=== PATIENT | male | born 1960 | race Caucasian/White ===

== ENCOUNTER → 2017-11-24 | Day surgery (SDC) | payer BC ==
[2017-11-17 15:06] VITALS: BMI 34.9
[~2017-11-24] MED LIST: DEXAMETHASONE SOD PHOS (MDV) 100 MG/10 ML VIAL ONE; FAMOTIDINE 20 MG/2 ML VIAL IV ONE; HYDROmorphone 1 MG/ML 1 ML SYRINGE IVP PRN; LACTATED RINGERS 1,000 ML IV SCH; LIDOCAINE 1% 20 ML VIAL (10MG/ML) FOR IV START INTRADERMA ONE; LIDOCAINE 1% INJ 10MG/ML (20 ML MDV) ONE; MIDAZOLAM 2 MG/2 ML VIAL ONE; ONDANSETRON 4 MG/2 ML VIAL IVP PRN; ONDANSETRON 4 MG/2 ML VIAL ONE; OXYMETAZOLINE 0.05% NASL SPRAY 1 SPRAY BOTTLE NASAL ONE; PROPOFOL 10 MG/ML 20 ML VIAL IV ONE; SUCCINYLCHOLINE CHLORIDE 100 MG/5 ML SYR IV ONE; ceFAZolin 1,000 MG in DEXTROSE/WATER 1 50ML.BAG IV ONE; fentaNYL (PF) 50 MCG/ML 2 ML AMP ONE
[2017-11-24 10:11] VITALS: RESP 16
[2017-11-24 10:27] LABS: Glucose,Whole Blood 87 mg/dL (75-99)
--- NOTE | 2017-11-24 11:48 | P.OP ---
Date of Procedure: 11/24/17 Preoperative Diagnosis: Left chronic otitis media Right tympanic membrane perforation Bilateral eustachian tube dysfunction Postoperative Diagnosis: Same Procedure(s) Performed: Left ventilation tube placement-triune tube, right ear microscopic exam under anesthesia, bilateral balloon eustachian tuboplasty Anesthesia: ART Surgeon: Benny Morton Estimated Blood Loss (ml): 2 Pathology: none sent Condition: stable Disposition: PACU Indications for Procedure: This 56-year-old white male with a long history of chronic otitis media and eustachian tube dysfunction. He's had. Recently with a recurrent left middle ear effusion and the right tympanic membranes perforation. Operative Findings: Mucoid middle ear effusion on the left, central right tympanic membrane perforation approximate 20% Description of Procedure: The patient was brought in the operative suite and placed in a supine position. The patient underwent induction of general anesthesia with oral endotracheal intubation without difficulty. The patient was prepped and draped in usual aseptic fashion. The Zeiss microscope was positioned over the right ear and examined under microscopy with a right intact membranes perforation noted. The left at this point to leave this as is as he's had numerous ventilation tubes and this was repaired he would likely need another ventilation tube and this is not significantly affecting his hearing at this point and he does fly frequently including some plans to fly within a week and a half and a fresh tympanoplasty would not be particularly ideal with flying in the near future. Attention was then turned to the left and the ear microscopy again was performed. An anteroinferior myringotomy was placed in radial fashion and the middle ear effusion was aspirated. A triune ventilation tube was placed without difficulty. Ciloxan drops were placed as well as sterile cotton ball Topical Afrin on cottonoids were placed in the nasal cavities and left in place for 3 minutes. These were then removed. Full 0 endoscopic evaluation performed bilaterally. The [employer] balloon light guided system was then utilized to perform eustachian tuboplasty utilizing the bending Tool at the shortest length for the eustachian tuboplasty. This was utilized bilaterally under 0 endoscopic examination and visualization. Very minimal bleeding was noted which stopped spontaneously. The balloon and endoscope were then removed. The patient was then allowed to emerge from general anesthesia having tolerated procedure well was extubated and transferred to the postoperative recovery area in satisfactory condition.
[2017-11-24 12:06] VITALS: TEMP 98.7
[2017-11-24 12:57] VITALS: BP 134/76; PULSE 58
== END | disposition home or self-care (01) ==
LOC: OR 09:26
PROVIDERS: ATTEND Otolaryngology
DX: H65.492 Other chronic nonsuppurative otitis media, left ear (principal); H72.91 Unspecified perforation of tympanic membrane, right ear; H69.93 Unspecified Eustachian tube disorder, bilateral; I12.9 Hypertensive chronic kidney disease with stage 1 through stage 4 chronic kidney disease, or unspecified chronic kidney disease; N18.9 Chronic kidney disease, unspecified; Z79.82 Long term (current) use of aspirin; Z79.899 Other long term (current) drug therapy; Z79.891 Long term (current) use of opiate analgesic
CPT/HCPCS: 69436; 69949; C1726; J2250; J2405; J2001; J3010; J0690; J1100; J0330; J2704

== ENCOUNTER 2021-03-27 12:09 | Emergency (ER) | payer BC ==
[2021-03-27 12:18] VITALS: BP 149/78; PULSE 65; RESP 16; TEMP 98
--- NOTE | 2021-03-27 13:06 | ED ---
Recheck HPI - General Chief Complaint: Recheck/Abnormal Lab/Rx Stated Complaint: arm pain Time Seen by Provider: 03/27/21 12:32 Source: patient, RN notes reviewed Mode of arrival: ambulatory Limitations: no limitations - History of Present Illness Initial Comments: 60-year-old presents emergency Department chief complaint right arm pain, swelling. Patient states that he was discharged 2 weeks ago from [facility]. Patient states that he was admitted for COVID-19. Patient states he had an IV in his right arm noticed that his been increasing redness, increased warmth and swelling. Patient states that is concerned about possible blood clot no chest pain or shortness of breath. Patient has no history of PE or DVT. - Related Data Home Medications Medication Instructions Recorded Confirmed Furosemide [Lasix] 20 mg PO BID 11/17/17 11/24/17 K-Phos 500mg 1,500 mg PO TID 11/17/17 Loratadine [Claritin] 10 mg PO DAILY 11/17/17 11/24/17 Magnesium Chloride [Mag64] 64 mg PO DAILY 11/17/17 11/24/17 Metoprolol Tartrate [Lopressor] 50 mg PO BID 11/17/17 11/24/17 NIFEdipine [NIFEdipine ER] 30 mg PO DAILY 11/17/17 11/24/17 NIFEdipine [NIFEdipine ER] 60 mg PO HS 11/17/17 11/24/17 Tacrolimus [Prograf] 3 mg PO Q12H 11/17/17 11/17/17 hydrALAZINE HCL [Apresoline] 100 mg PO TID 11/17/17 11/17/17 mycophenolate mofetiL [Cellcept] 1,000 mg PO BID 11/17/17 11/17/17 predniSONE 5 mg PO DAILY 11/17/17 11/24/17 Allergies Allergy/AdvReac Type Severity Reaction Status Date / Time No Known Allergies Allergy Verified 03/27/21 12:16 Review of Systems ROS Statement: Those systems with pertinent positive or pertinent negative responses have been documented in the HPI. ROS Other: All systems not noted in ROS Statement are negative. 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 SEASONAL ALLERGIES History of Any Multi-Drug Resistant Organisms: None Reported Past Surgical History: Orthopedic Surgery, Tonsillectomy Additional Past Surgical History / Comment(s): RT KIDNEY TRANSPLANT. BILAT WRIST SX. TRIUNE TUBE PLACEMENT BILAT EARS. BILAT BMT. COLONOSCOPY Past Anesthesia/Blood Transfusion Reactions: No Reported Reaction Past Psychological History: No Psychological Hx Reported Smoking Status: Never smoker Past Alcohol Use History: None Reported Past Drug Use History: None Reported - Past Family History Daughter(s) Family Medical History: Cancer Father Family Medical History: Cancer Sister(s) Family Medical History: Cancer Brother(s) Family Medical History: Cancer Additional Family Medical History / Comment(s): 1 BROTHER -JAW CANCER- 1 BROTHER PROSTATE CANCER General Exam Limitations: no limitations General appearance: alert, in no apparent distress Head exam: Present: atraumatic, normocephalic, normal inspection Eye exam: Present: normal appearance, PERRL, EOMI. Absent: scleral icterus, conjunctival injection, periorbital swelling Respiratory exam: Present: normal lung sounds bilaterally. Absent: respiratory distress, wheezes, rales, rhonchi, stridor Cardiovascular Exam: Present: regular rate, normal rhythm, normal heart sounds. Absent: systolic murmur, diastolic murmur, rubs, gallop, clicks Extremities exam: Present: other (Right arm there is an area of redness just past antecubital fossa, there is some tenderness and palpable lump extend up to the bicep) Skin exam: Present: warm, dry, intact, normal color. Absent: rash Course Vital Signs 03/27/21 12:16 Temperature 98 F Pulse Rate 65 Respiratory 16 Rate Blood Pressure 149/78 O2 Sat by Pulse 93 L Oximetry Medical Decision Making - Medical Decision Making Ultrasound was reviewed there is no evidence of acute DVT. Patient has evidence of superficial thrombophlebitis which is not within 2 cm of a deep vessel. I d id confirm this with ultrasound. Patient will have repeat ultrasound seventh and eighth with vascular. Patient will apply warm compresses. Disposition Clinical Impression: Superficial thrombophlebitis of arm Disposition: HOME SELF-CARE Condition: Stable Instructions (If sedation given, give patient instructions): Superficial Thrombophlebitis (ED) Additional Instructions: Please return to the Emergency Department if symptoms worsen or any other christa rns. Is patient prescribed a controlled substance at d/c from ED?: No Referrals: Kenan Jimenez MD [Primary Care Provider] - 1-2 days Cuppari,Ish, DO [STAFF PHYSICIAN] - 1-2 days Time of Disposition: 13:43
--- NOTE | 2021-03-27 13:29 | US ---
EXAMINATION TYPE: US venous doppler duplex UE RT DATE OF EXAM: 03/27/2021 COMPARISON: NONE CLINICAL HISTORY: pain. recent IV site in right arm is now reddened. No h/o dvt SIDE PERFORMED: Right Right Arm: Negative for DVT internal echoes throughout cephalic vein that did not compress and no f low detected. IMPRESSION: 1. No diagnostic evidence of DVT. However, there is evidence of superficial venous thrombosis involvi ng the cephalic vein.
== END 2021-03-27 13:56 | disposition home or self-care (01) ==
LOC: EC 12:09
DX: I80.8 Phlebitis and thrombophlebitis of other sites (principal); I10 Essential (primary) hypertension
CPT/HCPCS: 99283

== ENCOUNTER 2024-02-09 08:30 | Day surgery (SDC) | payer BC, MEDICARE ==
[2024-02-03 11:20] VITALS: BMI 34.1
[~2024-02-09 08:30] MED LIST changes: -DEXAMETHASONE SOD PHOS (MDV) 100 MG/10 ML VIAL ONE; -FAMOTIDINE 20 MG/2 ML VIAL IV ONE; -HYDROmorphone 1 MG/ML 1 ML SYRINGE IVP PRN; -LACTATED RINGERS 1,000 ML IV SCH; -LIDOCAINE 1% 20 ML VIAL (10MG/ML) FOR IV START INTRADERMA ONE; -LIDOCAINE 1% INJ 10MG/ML (20 ML MDV) ONE; -MIDAZOLAM 2 MG/2 ML VIAL ONE; -ONDANSETRON 4 MG/2 ML VIAL IVP PRN; -ONDANSETRON 4 MG/2 ML VIAL ONE; -OXYMETAZOLINE 0.05% NASL SPRAY 1 SPRAY BOTTLE NASAL ONE; -PROPOFOL 10 MG/ML 20 ML VIAL IV ONE; +Pre Op ABX Message 1 EACH MISC MISCELLANE ONE; -SUCCINYLCHOLINE CHLORIDE 100 MG/5 ML SYR IV ONE; -ceFAZolin 1,000 MG in DEXTROSE/WATER 1 50ML.BAG IV ONE; -fentaNYL (PF) 50 MCG/ML 2 ML AMP ONE
[2024-02-09] MEDS ORDERED: LIDOCAINE 1% (10MG/ML) FOR IV START INTRADERMA PRN (08:47)
[2024-02-09] MEDS ORDERED: HYDROmorphone 0.5 MG/0.5 ML SYRINGE IVP PRN (08:47)
[2024-02-09] MEDS ORDERED: droPERidol 5 MG/2 ML VIAL IVP ONE (08:47)
[2024-02-09] MEDS: OFLOXACIN 0.3% OPHTH DROPS 5 ML BOTTLE LEFT EAR ONE ×2 (09:01→10:18)
[2024-02-09 09:06] LABS: Glucose,Whole Blood 90 mg/dL (70-110)
[2024-02-09] MEDS: LACTATED RINGERS 1,000 ML IV SCH (09:06)
[2024-02-09] MEDS: DEXAMETHASONE SOD PHOSPHATE 4 MG/ML 1 ML VIAL IV ONE (09:25)
[2024-02-09] MEDS: ONDANSETRON 4 MG/2 ML VIAL IVP ONE (09:25)
[2024-02-09] MEDS: SODIUM CHLORIDE 0.9% 1,000 ML IV ONE (09:25)
[2024-02-09 09:44] LABS: ALT 9 U/L (4-49); African American GFR (CKD) >90 (>60 ml/min/1.73 sqM); Albumin 3.8 g/dL (3.5-5.0); Anion Gap 8 mmol/L; Blood Urea Nitrogen 18 mg/dL (9-20); Carbon Dioxide 21 mmol/L (22-30); Chloride 113 mmol/L (98-107); Glucose 95 mg/dL (74-99); Non-African American GFR(CKD) 85 (>60 ml/min/1.73 sqM); Sodium 142 mmol/L (137-145); Total Bilirubin 0.7 mg/dL (0.2-1.3); Total Protein 6.4 g/dL (6.3-8.2)
[2024-02-09 10:00] LABS: AST 25 U/L (17-59); Alkaline Phosphatase 83 U/L (38-126); Potassium 3.9 mmol/L (3.5-5.1)
[2024-02-09] MEDS ORDERED: PROPOFOL 10 MG/ML 20 ML VIAL IV ONE (10:03)
[2024-02-09] MEDS ORDERED: MIDAZOLAM 2 MG/2 ML VIAL ONE (10:03)
[2024-02-09] MEDS ORDERED: SUCCINYLCHOLINE CHLORIDE 200 MG/10 ML VIAL IV ONE (10:03)
[2024-02-09] MEDS ORDERED: LIDOCAINE 1% INJ 10MG/ML (20 ML MDV) ONE (10:03)
--- NOTE | 2024-02-09 10:21 | P.OP ---
Date of Procedure: 02/09/24 Preoperative Diagnosis: Left chronic serous otitis media Postoperative Diagnosis: Same Procedure(s) Performed: Left T-tube ventilation tube placement Anesthesia: ART Surgeon: Benny Morton Estimated Blood Loss (ml): 0 Pathology: none sent Condition: stable Disposition: PACU Indications for Procedure: This is a 63-year-old white male with chronic left otitis media-he's had ventilation tubes previously and has elected to proceed with a longer acting ventilation tube Operative Findings: Left serous otitis media mild to moderate myringosclerosis and also some thinning of the tympanic membrane Description of Procedure: Patient brought in the operative suite and placed in a supine position. Patient underwent induction of general anesthesia with oral endotracheal intubation without difficulty. The patient was prepped and draped in usual aseptic fashion. Zeiss microscope was positioned over the left ear and cerumen was cleaned from the external auditory canal. An anteroinferior myringotomy was placed in radial fashion and the middle ear effusion was aspirated. Note that the tympanic membrane is quite thin diffusely and does have some mild or moderate myringosclerosis also. A T-tube ventilation tube was placed without difficulty. Ofloxacin otic suspension was placed in the external auditory canal followed by a sterile cottonball. The patient was allowed to emerge from general anesthesia having tolerated procedure well was extubated in the operating suite and transferred postoperative recovery area in satisfactory condition.
[2024-02-09 11:09] VITALS: TEMP 97.2
[2024-02-09 11:43] VITALS: BP 153/86; PULSE 65; RESP 16
== END 2024-02-09 11:51 | disposition home or self-care (01) ==
LOC: OR 08:30
PROVIDERS: ATTEND Otolaryngology
DX: H65.22 Chronic serous otitis media, left ear (principal); I10 Essential (primary) hypertension; G47.33 Obstructive sleep apnea (adult) (pediatric); N28.9 Disorder of kidney and ureter, unspecified; Z79.899 Other long term (current) drug therapy; Z79.52 Long term (current) use of systemic steroids; Z94.0 Kidney transplant status
CPT/HCPCS: 80053; 69436; J2250; J0330; J1100; J2405; J2001; J2704